=== PATIENT | female | born 2005 | race Caucasian/White ===

== ENCOUNTER 2024-07-29 03:54 | Emergency (ER) | payer OTHER, SELFPAY ==
[2024-07-29 03:56] VITALS: BP 168/93; PULSE 67; RESP 16; TEMP 36.5; O2SAT 99; BMI 25.8
--- NOTE | 2024-07-29 03:57 | ED.ABDPAIN ---
HPI - Abdominal Pain General Time Seen by Provider: 03:57 Date Seen: 07/29/24 Chief Complaint: Abdominal Pain Stated Complaint: Abdominal pain Time Seen by Provider: 07/29/24 03:57 Source: patient, RN notes reviewed and old records reviewed Mode of arrival: ambulatory Limitations: no limitations History of Present Illness HPI narrative: 18-year-old female who presents today for abdominal pain. patient notes abdominal pain starting last night, said is generalized, nausea with no vomiting, last bowel movement yesterday was normal. No urinary symptoms. Last period was last week. Took Midol at home with minimal improvement. No prior surgeries. Pain is constant, no relieving or exacerbating factors. Related Data Previous Rx's ?Medication ?Instructions ?Recorded dicyclomine 10 mg capsule 10 mg PO QID PRN abdominal pain 07/29/24 #10 caps polyethylene glycol 3350 17 17 g PO BID #170 grams 07/29/24 gram/dose oral powder (Miralax) Allergies Allergy/AdvReac Type Severity Reaction Status Date / Time No Known Drug Allergies Allergy Verified 07/29/24 04:01 [facility] Social History Smoking Status: Never smoker Do you use any of these nicotine containing products: None How often do you have a drink containing alcohol: never AUDIT-C Alcohol total score: 0 Non-prescribed substance use: denies use Exam Narrative: Exam Narrative: General: Well-developed and well-nourished, no acute distress Head: Atraumatic and normocephalic Eyes: Pupils are equal reactive, extraocular motions intact, conjunctiva clear ENT: External nose and ears are normal, posterior pharynx without erythema or exudate Neck: No midline cervical tenderness, full spontaneous range of motion the neck, trachea midline, no adenopathy Heart: Regular rate and rhythm no murmurs or thrills Lungs: Clear to auscultation bilaterally without wheezes or crackles Abdomen: Soft, epigastric and left-sided abdominal tenderness, nondistended with active bowel sounds Musculoskeletal: No tenderness, deformity, or edema Neurologic: Awake, alert, and oriented x3, no gross focal neurologic deficits, cranial nerves intact as tested Psych: Mood and affect are appropriate Skin: No rashes Const: Vital Signs, click to edit/add: Vital Signs - 24 hr 07/29/24 03:56 Temperature 97.7 F Pulse Rate [Pulse Oximeter] 67 Respiratory Rate 16 Blood Pressure [Ri ght Upper Arm] 168/93 H Pulse Oximetry 99 Oxygen Delivery Me thod Room Air Course Course ED Course: Reviewed prior office visit from April 2024 which was followup for anxiety and anemia, at that time hemoglobin 14.6. patient seen examined, reports abdominal pain since last night, says it is generalized, on exam vitally stable, has epigastric and some left-sided abdominal tenderness. No right lower quadrant nor other right-sided abdominal tenderness. Consider enteritis, appendicitis or acute cholecystitis unlikely as pain is more on the left and no right-sided abdominal tenderness. Also consider ovarian pathology including cyst or torsion. CT scan ordered along with labs, Toradol, and Zofran. Reevaluation(s) Time of Reevaluation #1: 04:45 Reevaluation #1: Labs ordered and independently interpreted by me with normal CBC, normal basic panel, slightly elevated AST, normal lipase, normal urinalysis. CT abdomen pelvis and panel interpreted by me demonstrates large volume of stool in the ascending colon and cecum. Vital Signs Vital signs: Initial Vital Signs Temperature 97.7 F 07/29/24 03:56 Temperature Source Temporal Artery Scan 07/29/24 03:56 Pulse Rate 67 07/29/24 03:56 Respiratory Rate 16 07/29/24 03:56 Blood Pressure 168/93 H 07/29/24 03:56 Blood Pressure Mean 118 H 07/29/24 03:56 Blood Pressure Position Supine 07/29/24 03:56 Pulse Oximetry 99 07/29/24 03:56 Oxygen Delivery Method Room Air 07/29/24 03:56 Vital Signs Temperature 97.7 F 07/29/24 03:56 Pulse Rate 67 07/29/24 03:56 Respiratory Rate 16 07/29/24 03:56 Blood Pressure 168/93 H 07/29/24 03:56 Pulse Oximetry 99 07/29/24 03:56 Oxygen Delivery Method Room Air 07/29/24 03:56 Temperature 97.7 F 07/29/24 03:56 Pulse Rate 67 07/29/24 03:56 Respiratory Rate 16 07/29/24 03:56 Blood Pressure 168/93 H 07/29/24 03:56 Pulse Oximetry 99 07/29/24 03:56 Oxygen Delivery Method Room Air 07/29/24 03:56 Medications Administered Medications: Discontinued Medications Generic Name Dose Route Start Last Admin Trade Name Freq PRN Reason Stop Dose Admin Ketorolac Tromethamine 15 mg 07/29/24 04:07 07/29/24 04:14 Ketorolac 15 Mg/Ml Inj IVP 07/29/24 04:08 15 mg ONCE ONE Administration Ondansetron HCl 4 mg 07/29/24 04:07 07/29/24 04:14 Ondansetron 2 Mg/Ml Inj IVP 07/29/24 04:08 4 mg ONCE ONE Administration MDM - Abdominal Pain Lab Data Labs: Lab Results 07/29/24 07/29/24 Range/Units 04:03 04:10 WBC 8.94 (4.50-11.00) K/uL RBC 4.79 (4.00-5.20) m/uL Hgb 14.3 (12.0-16.0) gm/dL Hct 42.9 (33.0-51.0) % MCV 90 (80-100) fL MCH 30 (26-34) pg MCHC 33 (32-36) gm/dL RDW Coeff of Chary 12.4 (11.5-15.5) % Plt Count 302 (140-440) K/uL Neut % (Auto) 43.6 (42.0-72.0) % Lymph % (Auto) 44.5 H (20-44) % Erath % (Auto) 10.5 (0.0-11.0) % Eos % (Auto) 1.1 (0.0-7.0) % Baso % (Auto) 0.2 (0.0-3.0) % Neut # (Auto) 3.89 (1.7-7.0) K/uL Lymph # (Auto) 4.00 H (0.90-2.90) K/uL Erath # (Auto) 0.90 (0.00-0.90) K/UL Eos # (Auto) 0.10 (0.00-0.50) K/uL Baso # (Auto) 0.02 (0.00-0.30) K/uL Abs Immat Gran (auto) 0.01 (0.00-0.30) K/uL Imm/Tot Granulo (auto) 0.1 % Sodium 140 (135-149) mmol/L Potassium 3.9 (3.6-5.1) mmol/L Chloride 104 (96-114) mmol/L Carbon Dioxide 27 (20-32) mmol/L Anion Gap 9 (7-15) mEq/L BUN 10 (5-24) mg/dL Creatinine 1.0 (0.6-1.2) mg/dL Estimated Creat Clear 84.71 Estimated GFR 83 ml/min Glucose 101 (60-115) mg/dL Calcium 9.3 (8.7-10.8) mg/dL Total Bilirubin 0.4 (0.1-1.5) mg/dL Direct Bilirubin 0.3 (0.0-0.5) mg/dL AST 41 H (12-35) U/L ALT 20 (4-35) U/L Alkaline Phosphatase 69 (40-150) U/L Total Protein 7.8 (6.0-8.3) g/dL Albumin 4.8 (3.3-5.0) g/dL Lipase 84 (23-300) U/L Urine Color Yellow (Yellow) Urine Appearance Clear (Clear) Urine pH 5.5 (5.0-8.5) Ur Specific [place] >= 1.030 (1.000-1.030) Urine Protein Negative (Negative) Urine Glucose (UA) Negative (Negative) Urine Ketones Negative (Negative) Urine Blood Negative (Negative) Urine Nitrite Negative (Negative) Urine Bilirubin Negative (Negative) Urine Urobilinogen 0.2 (0.2-1.0) Ur Leukocyte Esterase Negative (Negative) Urine RBC 0-2 (0-2) Urine WBC 2-5 (0-5) Ur Squamous Epith Cells Few (None-Few) Urine Bacteria Few A (None) Urine HCG, Qual Negative (Negative) Discharge Plan Discharge Clinical Impression: Constipation Patient Disposition: Home, Self-Care Instructions: Constipation (DC) Additional Instructions: Liquid diet for 24 hours Take MiraLax as prescribed Take Bentyl as needed for abdominal pain Prescriptions: New dicyclomine 10 mg capsule 10 mg PO QID PRN (Reason: abdominal pain) Qty: 10 0RF polyethylene glycol 3350 [Miralax] 17 gram/dose powder 17 g PO BID Qty: 170 0RF Follow Up/Referrals: Provider,Not a Local [Primary Care Provider] - Stand Alone Forms: MyHealth Info Instructions
--- NOTE | 2024-07-29 04:07 | CRLHL7_ITS ---
For Patients: As a result of the Century Cures Act, medical imaging exams and procedure reports are released immediately into your electronic medical record. You may view this report before your referring provider. If you have questions, please contact your health care provider. INDICATION: Abdominal pain in the epigastrium and lower abdomen. Nausea.. COMPARISON: None. TECHNIQUE: CT of the abdomen and pelvis with intravenous contrast. Multiplanar axial, coronal, and sagittal reformats were reconstructed. Contrast: 79 mL Isovue 370. FINDINGS: Lung bases: Normal. Liver: Normal. No mass. Gallbladder and bile ducts: Normal gallbladder. No bile duct dilation. Pancreas: Normal. Spleen: Normal. Adrenal glands: Normal. Kidneys: Normal parenchyma. No cyst or solid mass. No calculi. No urinary tract dilation. Urinary bladder: Nearly empty. Pelvis: No cyst or mass. Vessels: Normal. Bowel: No dilated or inflamed bowel. Normal appendix. Large stool burden in the cecum and right colon. Lymph nodes: No adenopathy. Peritoneum: Trace pelvic free fluid is generally considered physiologic in a patient this age. Abdominal wall: No hernia. Bones: No fractures. No focal worrisome bone lesions. IMPRESSION: Large stool burden in the cecum and right colon. No acute appearing findings. Please note that all CT scans at this facility use dose modulation, iterative reconstruction, and/or weight-based dosing when appropriate to reduce radiation dose to as low as reasonably achievable. Dictated by Cris Whittaker MD @ 07/29/2024 4:50:01 AM (Electronically Signed)
[2024-07-29] MEDS: KETOROLAC 15 MG/ML inj IVP (04:14)
[2024-07-29] MEDS: ONDANSETRON 2 MG/ML inj 4 MG IVP (04:14)
[2024-07-29 04:17] LABS: Basophils Absolute Auto 0.02 K/uL (0.00-0.30); Basophils Percent Auto 0.2 % (0.0-3.0); Eosinophils Percent Auto 1.1 % (0.0-7.0); Hematocrit 42.9 % (33.0-51.0); Hemoglobin* 14.3 gm/dL (12.0-16.0); Immature Granulocytes Abs Auto 0.01 K/uL (0.00-0.30); Immature Granulocytes Pct Auto 0.1 %; Lymphocytes Percent Auto 44.5 % (20-44); Mean Corpuscular HGB Conc 33 gm/dL (32-36); Mean Corpuscular Hemoglobin 30 pg (26-34); Mean Corpuscular Volume 90 fL (80-100); Monocytes Percent Auto 10.5 % (0.0-11.0); Neutrophils Absolute Auto 3.89 K/uL (1.7-7.0); Neutrophils Percent Auto 43.6 % (42.0-72.0); Platelet Count* 302 K/uL (140-440); RDW Coefficient of Variation % 12.4 % (11.5-15.5); Red Blood Count 4.79 m/uL (4.00-5.20); White Blood Count* 8.94 K/uL (4.50-11.00)
[2024-07-29 04:20] LABS: Appearance Urine Clear (Clear); Bilirubin Urine Negative (Negative); Blood Urine Negative (Negative); Color Urine Yellow (Yellow); Glucose Urine Negative (Negative); Ketones Urine Negative (Negative); Leukocyte Esterase Urine Negative (Negative); Nitrite Urine Negative (Negative); Protein Urine Negative (Negative); Specific Gravity Urine >= 1.030 (1.000-1.030); Urobilinogen Urine 0.2 (0.2-1.0); pH Urine 5.5 (5.0-8.5)
[2024-07-29 04:23] LABS: Albumin* 4.8 g/dL (3.3-5.0); Chloride* 104 mmol/L (96-114); Potassium* 3.9 mmol/L (3.6-5.1); Sodium* 140 mmol/L (135-149)
[2024-07-29 04:26] LABS: Alanine Aminotransferase* 20 U/L (4-35); Alkaline Phosphatase* 69 U/L (40-150); Anion Gap 9 mEq/L (7-15); Aspartate Amino Transferase* 41 U/L (12-35); Bilirubin Direct* 0.3 mg/dL (0.0-0.5); Bilirubin Total* 0.4 mg/dL (0.1-1.5); Blood Urea Nitrogen* 10 mg/dL (5-24); Carbon Dioxide* 27 mmol/L (20-32); Est. Creatinine Clearance* 84.71; Estimated Glomerular Filt Rate 83 ml/min; Total Protein* 7.8 g/dL (6.0-8.3)
[2024-07-29 04:27] LABS: Calcium* 9.3 mg/dL (8.7-10.8); Glucose* 101 mg/dL (60-115); Lipase* 84 U/L (23-300)
[2024-07-29 04:27] LABS: Bacteria Urine Few; RBC Urine 0-2 (0-2); Squamous Epithelial Cell Urine Few (None-Few); Ur HCG Qualitative* Negative (Negative)
--- OUTSIDE RECORDS SUMMARY | 2024-07-29 04:27 | XMS_ITS | Clinical Summary ---
Author Organization [facility] Address [address] [place] [address] Care Team Providers Care Certified Professional Ergonomist Name Role Phone Gus Montanez MD Primary Care Provider [phone] Source Comments You are receiving this document as you are listed as the primary care provider,follow-up provider, or the patient has been referred to you for consultation.This is in compliance with the Medicare and[facility] EHR Incentive Program,which states Providers who transition their patient to another setting of careor provider of care or refers their patient to another provider of care shouldprovide summary care record for each transition of care or referral. [facility] Allergies No known active allergies Medications ferrous sulfate 325 (65 Fe) MG tablet Take 1 Tablet (325 mg) by mouth two times a day. Every 3 days takes 2 iron pills Active desogestrel-ethi nyl estradiol (APRI) 0.15-30 MG-MCG tabletIndication s: control counseling Take 1 Tablet by mouth daily. 84 Tablet 4 11/16/2023 5 Active Active Problems No known active problems Resolved Problems Problem Noted Date Diagnosed Date Resolved Date Rhinitis 01/03/2010 01/26/2020 Overview (12/24/2016): Rhinitis - ? allergic or ongoing uri Bronchospasm 10/21/2007 01/26/2020 Encounters Date Type Department Care Team Description 05/03/2024 9:20 AM TIRE FINISHER Lab Visit [facility] [address] [place] [address] Lab Visit, Er Iron deficiency anemia due to chronic blood loss; DAVID (generalized anxiety disorder) (HRC) 05/03/2024 8:50 AM TIRE FINISHER Office Visit [facility] [address] [place] [address] Funmilayo Bee, STOCK LAYER, [employer] HAZMAT DRIVER DAVID (generalized anxiety disorder) (HR) (Primary Dx); Iron deficiency anemia due to chronic blood loss from Last 3 Months Immunizations Immunization Administration Dates Next Due 9vHPV (Gardasil 9) 06/18/2017,11/19/2016 DTaP 04/14/2006,01/30/2005 [id number]-LvxL-ZSI (Pediarix) 06/11/2005,04/07/2005 DTaP-IPV (Kinrix, 4-6 yrs) 12/04/2009 Flu Vac (3+ yrs) 05/18/2008 Flu Vac Preserv Free (6-35 mo) 03/29/2007,2005 HepA Ped/Adol (1-18 yrs) 11/06/2021,01/26/2020 Hib (PedvaxHIB) 12/19/2005 Hib, Unspecified Formulation 04/07/2005 Hib/HBV 01/30/2005 IPV (Polio) 01/30/2005 Influenza (Flucelvax), Prese rv Free QIV 02/18/2018 Influenza IIV4 (Quadrivalent ) 0.5mL (47745) 01/26/2020,06/30/2019,02/19/2017 Influenza LAIV (Nasal, 2-49 yrs) 02/04/2021,01/2013 Influenza LAIV3 2-49 years (Flumist) 12/30/2011, 12/26/2010,01/04/2009 MCV4 Menveo 2m.+ (two vial) 11/06/2021, 7 MMRV (ProQuad) 12/04/2009,12/19/2005 Pfizer Monovalent 12+ Purple Top 01/04/2021,12/02 Pneumococcal 7, PED 04/14/2006, 6,04/07/2005,2004 Tdap 11/19/2016 Family History Medical History Relation Name Comments ADHD Father ADHD Maternal Grandfather Alcohol/Drug Abuse Maternal Grandfather Coronary Artery Disease Maternal Grandfather heart attack Hypertension Maternal Grandfather Other Maternal Grandmother heart m urmur Depression Other 1 p grandma Diabetes Other 2 Other Other 3 Mental retardat ion - niece Blindness Other 4 Cancer, Breast Other 5 Cancer, Melanoma Other 6 Cataract Other 7 Depression Other 8 Diabetes, Type II Other 9 Hypertension Other 10 Relation Name Status Comments Father Alive Kael Vázquezd Mother Alive Jm Vázquezd Maternal Grandfather Alive Maternal Grandmother Alive Other 1 Other 2 Other 3 Other 4 Other 5 Other 6 Other 7 Other 8 Other 9 Other 10 Paternal Grandfather Alive Paternal Grandmother Alive Sister Alive Maria Isabel Social History Tobacco Use Types Packs/Day Years Used Date Smoking Tobacco: Passive Smo ke Exposure - Never Smoker Cigarettes Smokeless Tobacco: Never Comments:mom smokes outside Alcohol Use Standard Drinks/Week Comments Yes 2 (1 standard drink = 0.6 oz pur e alcohol) PHQ-2 Answer Date Recorded PHQ-2 Score 0 01/01/2023 Comments No Sex and Gender Information Value Date Recorded Sex Assigned at Not on file Legal Sex Female 5:51 AM CDT Gender Identity Not on file Sexual Orientation Not on file Last Filed Vital Signs Vital Sign Reading Time Taken Comments Blood Pressure 119/61 05/03/2024 8:47 AM TIRE FINISHER Pulse 57 05/03/2024 8:47 AM TIRE FINISHER Temperature 36.6 C (97.8 F) 03/24/2014 11:18 AM TIRE FINISHER Respiratory Rate - - Oxygen Saturation 95% 12/31/2009 9:19 AM CDT Inhaled Oxygen Concentration - - Weight 73 kg (160 lb 14.4 oz) 05/03/2024 8:47 AM TIRE FINISHER Height 168.9 cm (5' 6.5) 11/16/2023 1:29 PM CDT Head Circumference 48.5 cm 12/30/2006 5:15 PM CDT Head Circumference Percentile 74.24% 12/30/2006 5:15 PM CDT Growth Chart: [facility] (Girls, 0- 36 Months) Body Mass Index 25.58 11/16/2023 1:29 PM CDT Plan of Treatment Health Maintenance Due Date Last Done Comments Hep C Screening (Preventive Services) 2004 MenB Immunization Discussion 2004 HIV Screening (Preventive Services) 2020 Adult Preventive Visit 2022 , 11/06/2021, 01/26/2020, Additional history exists Chlamydia 11/11/2023 11/10/2022 COVID-19 Vaccine ( season) 2024 01/04/2021, 12/12/2020 Influenza (#1) 2024 02/04/2021, 01/03, 06/30/2019, Additional history exists DTaP/Tdap/Td (7 - Tdap) 11/19/2026 11/20/19 17, 12/04/2009, 04/14/2006, Additional history exists Zoster/Shingles (1 of 2) 2054 HepB Completed 06/11/2005, 09/2004, 01/30/2005 Hib Completed 12/19/2005, 09/2004, 01/30/2005 Pneumococcal Aged Out 04/14/2006, 12/2005, 04/07/2005, Additional history exists No longer eligible based on patient's age to complete this topic IPV (Polio) Completed 12/04/2009, 12/2005, 04/07/2005, Additional history exists Varicella Completed 12/04/2009, 12/19/2005 HPV Vaccine Completed 06/18/2017, 11/19/2016 HepA Completed 11/06/2021, 01/26/2020 MCV4 Completed 11/06/2021, 11/19/2016 HGB Completed 05/03/2024, 11/01, 11/10/2022, Additional history exists Procedures Procedure Name Priority Date/Time Associated Diagnosis Comments TSH, SENSITIVE Routine 05/03/2024 9:23 AM TIRE FINISHER DAVID (generalized anxiety disorder) (HRC) VITAMIN D 25-HYDROXY, TOTAL Routine 05/03/2024 9:23 AM TIRE FINISHER DAVID (generalized anxiety disorder) (HRC) COMPLETE BLOOD COUNT-NO DIFF Routine 05/03/2024 9:23 AM TIRE FINISHER Iron deficiency anemia due to chronic blood loss IRON PROFILE (IRON,TIBC,%SAT.(CA LC)) Routine 05/03/2024 9:23 AM TIRE FINISHER Iron deficiency anemia due to chronic blood loss CHLAMYDIA & GC (14 YEARS & OLDER) Routine 11/10/2022 2:16 PM CDT Routine screening for STI (sexually transmitted infection) from Last 3 Months or Most Recently Relevant to Health Maintenance Results * Vitamin D 25-Hydroxy, Total (05/03/2024 9:23 AM TIRE FINISHER) Vitamin D, 25-OH, Total 46 30 - 80 ng/mL 05/03/2024 3:40 PM TIRE FINISHER [facility] Blood Venipuncture / Unknown 05/03/2024 9:23 AM TIRE FINISHER 05/03/2024 9:23 AM TIRE FINISHER Funmilayo Bee APRN, [employer] LAB_1 Fin al Result Performing Organization Address [facility] Co de Phone Number [facility] [address] [place] [address] * TSH (05/03/2024 9:23 AM TIRE FINISHER) TSH, Sensitive 3.41 0.30 - 4.50 uIU/mL 05/03/2024 3:43 PM TIRE FINISHER [facility] Blood Venipuncture / Unknown 05/03/2024 9:23 AM TIRE FINISHER 05/03/2024 9:23 AM TIRE FINISHER Funmilayo Bee APRN, [employer] HA[employer] LAB_1 Fin al Result Performing Organization Address [facility] Co de Phone Number [facility] [address] * Complete Blood Count-No Diff (05/03/2024 9:23 AM TIRE FINISHER) WBC 6.6 3.5 - 10.5 x10(9)/L 05/03/2024 10:07 AM [facility] RBC 5.01 3.90 - 5.03 x10(12)/L 05/03/2024 10:07 AM [facility] Hemoglobin 14.6 12.0 - 15.5 g/dL 05/03/2024 10:07 AM [facility] HCT 43.3 34.9 - 44.5 % 05/03/2024 10:07 AM [facility] MCV 86.4 80.0 - 100.0 fL 05/03/2024 10:07 AM [facility] MCH 29.1 27.6 - 33.3 pg 05/03/2024 10:07 AM [facility] MCHC 33.7 31.5 - 35.2 g/dL 05/03/2024 10:07 AM [facility] RDW 12.5 11.9 - 15.5 % 05/03/2024 10:07 AM [facility] Platelets 259 150 - 450 x10(9)/L 05/03/2024 10:07 AM [facility] Blood Venipuncture / Unknown 05/03/2024 9:23 AM TIRE FINISHER 05/03/2024 9:23 AM [facility] us Funmilayo Bee APRN, [employer] LAB_1 Fin al Result [facility] [address] * Iron Profile (Iron,TIBC,%Sat.(Calc)) (05/03/2024 9:23 AM TIRE FINISHER) Iron 154 50 - 170 mcg/dL 05/03/2024 3:35 PM [facility] Transferrin 316 180 - 382 mg/dL 05/03/2024 3:35 PM [facility] TIBC, Calculated 395 240 - 450 mcg/dL 05/03/2024 3:35 PM [facility] % Saturation, Calculated 39 10 - 50 % 05/03/2024 3:35 PM TIRE FINISHER [facility] Blood Venipuncture / Unknown 05/03/2024 9:23 AM TIRE FINISHER 05/03/2024 9:23 AM TIRE FINISHER us Funmilayo Bee STOCK LAYER, [employer] LAB_1 Fin al Result Performing Organization Address [facility] Co de Phone Number [facility] [address] * Chlamydia & GC (14 Years and Older): Vagina (11/10/2022 2:16 PM CDT) Chlamydia Trachomatis STD Not Detected Not Detected 11/10/2022 11:06 PM CDT [facility] N. gonorrhoeae STD Not Detected Not Detected 11/10/2022 11:06 PM CDT [facility] Swab STD SPECIMEN FROM VAGINA / Unknown Non-blood Collection / Unknown 11/10/2022 2:16 PM CDT 11/10/2022 2:16 PM CDT Narrative [facility] - 11/10/2022 11:06 PM CDT Test performed by Billet Examiner Mediated Amplification (TMA). us Tana Raygoza APRN, [employer] LAB_1 Final Result Performing Organization Address [facility] Co de Phone Number [facility] [address] [phone] from Last 3 Months or Most Recently Relevant to Health Maintenance Insurance [facility] Care Teams Certified Professional Ergonomist Relationship Specialty Start Date End Date Gus Montanez MD [address] [place] [address] [facility] - General 04
--- OUTSIDE RECORDS SUMMARY | 2024-07-29 04:27 | XMS_ITS | Encounter Summary ---
Author Organization [facility] Address [address] [place] [address] Care Team Providers Care Orthopedic Shoe Maker Name Role Phone Gus Montanez MD Primary Care Provider [phone] Encounter Details Date Type Department Care Team (Late st Contact Info) Description 05/21/2017 Correspondence None No Primary/Referring, Phy DME EQUIPMENT PROOF OF DELIVERY Social History Tobacco Use Types Packs/Day Years Used Date Smoking Tobacco: Passive Smo ke Exposure - Never Smoker Cigarettes Smokeless Tobacco: Never Comments:mom smokes outside Alcohol Use Standard Drinks/Week Comments No 0 (1 standard drink = 0.6 oz pur e alcohol) Comments Unknown Sex and Gender Information Value Date Recorded Sex Assigned at Not on file Legal Sex Female 5:51 AM CDT Gender Identity Not on file Sexual Orientation Not on file documented as of this encounter Plan of Treatment Not on file documented as of this encounter Visit Diagnoses Not on filedocumented in this encounter Care Teams Orthopedic Shoe Maker Relationship Specialty Start Date End Date Gus Montanez MD [address] [place] [id number] PCP - General 04 documented as of this encounter
--- OUTSIDE RECORDS SUMMARY | 2024-07-29 04:27 | XMS_ITS | Encounter Summary ---
Author Organization [facility] Address [address] [place] [address] Care Team Providers Care Theatrical Agent Name Role Phone Gus Montanez MD Primary Care Provider [phone] Encounter Details Date Type Department Care Team (Late st Contact Info) Description 11/19/[address] [facility] [address] [place] [address] Gus Montanez MD [address] [place] [address] [employer] Social History Tobacco Use Types Packs/Day Years [...] on filedocumented in this encounter Care Teams Theatrical Agent Relationship Specialty Start Date End Date Gus Montanez MD [address] [place] [address] PCP - General 04 documented as of this encounter
[2024-07-29 04:28] LABS: Slide Review Reflex No
== END 2024-07-29 05:01 | disposition home or self-care (01) ==
PROVIDERS: Emergency Provider Family Medicine
DX: K59.00 Constipation, unspecified (principal)
CPT/HCPCS: 36415; 74177; 80048; 80076; 81001; 81025; 83690; 85025; 87086; 96374; 96375; 99284; 99285; J1885; J2405; Q9967